=== PATIENT | male | born 1940 | race Hispanic/Latino ===

== ENCOUNTER 2022-02-02 10:03 | Emergency (ER) | payer SELFPAY ==
[2022-02-02] MEDS ORDERED: IBUPROFEN 800 MG TAB PO ONE (10:19)
[2022-02-02] MEDS ORDERED: ACETAMINOPHEN 500 MG TAB PO ONE (10:19)
[2022-02-02] MEDS ORDERED: VALSARTAN 160MG TAB PO ONE (10:20)
--- NOTE | 2022-02-02 10:24 | Emergency Department Report ---
ED Headache HPI - General Chief Complaint: Headache Stated Complaint: HEADACHE Time Seen by Provider: 02/02/22 10:12 Source: patient Exam Limitations: no limitations - History of Present Illness Initial Comments: CC: my eye hurts HPI: THis is an 81 yo male with hx of DM, HTN, HLD, bilateral BKA who presents with right eye pain gradual onset this morning. Timing/Duration: other (This morning) Quality: mild Head Injury Location: other (Right eye pain) Recent Head Trauma: occasional headaches Modifying Factors: improves with: exposure to light Associated Symptoms: denies symptoms Allergies/Adverse Reactions: Allergies No Known Allergies Allergy (Verified 02/02/22 10:06) Home Medications: Ambulatory Orders Aspirin EC 81 mg PO DAILY 02/02/22 Hydrochlorothiazide 12.5 mg PO DAILY 02/02/22 Tamsulosin [Flomax] 0.4 mg PO QDAY 02/02/22 amLODIPine 20 mg PO DAILY 02/02/22 metFORMIN 500 mg PO BID 02/02/22 ED Review of Systems ROS: Stated complaint: HEADACHE Other details as noted in HPI Comment: All other systems reviewed and negative Constitutional: denies: chills, fever, malaise Eyes: eye pain ENT: denies: throat pain Respiratory: cough, orthopnea Gastrointestinal: denies: abdominal pain, nausea, vomiting Neurological: headache ED Past Medical Hx - Past Medical History Previous Medical History?: Yes Hx Hypertension: Yes Hx Diabetes: Yes - Surgical History Past Surgical History?: Yes Additional Surgical History: Bilateral BKA - Family History Family history: hypertension - Social History Smoking Status: Never Smoker Substance Use Type: None - Medications Home Medications: Home Medications Medication Instructions Recorded Confirmed Last Taken Type Aspirin EC 81 mg PO DAILY 02/02/22 02/02/22 02/01/22 History Hydrochlorothiazide 12.5 mg PO DAILY 02/02/22 02/02/22 02/01/22 History Tamsulosin [Flomax] 0.4 mg PO QDAY 02/02/22 02/02/22 02/01/22 History amLODIPine 20 mg PO DAILY 02/02/22 02/02/22 02/01/22 History metFORMIN 500 mg PO BID 02/02/22 02/02/22 02/01/22 History ED Physical Exam - General Limitations: Physical Limitation General appearance: alert, in no apparent distress - Head Head exam: Present: atraumatic, normocephalic - Eye Eye exam: Present: normal appearance, other (Arcus senilis present bilaterally). Absent: scleral icterus, conjunctival injection - ENT ENT exam: Present: mucous membranes moist - Neck Neck exam: Present: normal inspection, full ROM - Respiratory Respiratory exam: Present: normal lung sounds bilaterally. Absent: respiratory distress, wheezes, rales, rhonchi - Cardiovascular Cardiovascular Exam: Present: regular rate, normal rhythm, normal heart sounds. Absent: systolic murmur, diastolic murmur, rubs, gallop - GI/Abdominal GI/Abdominal exam: Present: soft, normal bowel sounds. Absent: distended, tenderness, guarding, rebound - Rectal Rectal exam: Present: deferred - Extremities Exam Extremities exam: Present: other (Bilateral prosthetics lower extremity) - Neurological Exam Neurological exam: Present: alert, oriented X3 - Psychiatric Psychiatric exam: Present: normal affect, normal mood - Skin Skin exam: Present: warm, dry, intact, normal color. Absent: rash ED Course Vital Signs 02/02/22 02/02/22 02/02/22 10:03 10:23 10:25 Temperature 98.2 F 98.1 F Pulse Rate 64 61 61 Respiratory 11 L 11 L Rate Blood Pressure 196/81 Blood Pressure 205/89 196/89 [Left] O2 Sat by Pulse 98 99 99 Oximetry 02/02/22 10:31 Temperature Pulse Rate 64 Respiratory Rate Blood Pressure 196/89 Blood Pressure [Left] O2 Sat by Pulse Oximetry ED Medical Decision Making - Medical Decision Making Tension headache, hypertensive urgency. 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 I do not suspect acute angle glaucoma on exam. Patient's vision is baseline acuity Critical care attestation.: If time is entered above; I have spent that time in minutes in the direct care of this critically ill patient, excluding procedure time. ED Disposition Clinical Impression: Hypertensive urgency, Tension headache Disposition: 01 HOME / SELF CARE / HOMELESS Is pt being admited?: No Does the pt Need Aspirin: No Condition: Stable Instructions: Tension Headache, Adult Referrals: ALYSIA SILVA MD [Staff Physician] - 3-5 Days [facility] [Provider Group] - 3-5 Days
[2022-02-02 10:27] VITALS: BP 196/89
== END 2022-02-02 11:45 | disposition home or self-care (01) ==
LOC: ED 10:03
DX: I16.0 Hypertensive urgency (principal); G44.209 Tension-type headache, unspecified, not intractable; E11.9 Type 2 diabetes mellitus without complications
CPT/HCPCS: 99283